=== PATIENT | male | born 1965 | race Caucasian/White ===

== ENCOUNTER 2021-09-26 20:23 | Emergency (ER) | payer BC ==
[2021-09-26 21:01] VITALS: TEMP 98.6
[2021-09-26] MEDS ORDERED: predniSONE 20 MG TAB PO STA (21:48)
[2021-09-26] MEDS ORDERED: valACYclovir 500 MG TAB PO ONE (22:00)
--- NOTE | 2021-09-26 22:02 | ED ---
Neuro HPI - General Chief Complaint: Neuro Symptoms/Deficit Stated Complaint: Droopy Eye Source: patient, RN notes reviewed, old records reviewed Mode of arrival: ambulatory Limitations: no limitations - History of Present Illness Is the patient presenting with stroke symptoms?: No -: hour(s) Initial Comments: This is a 56-year-old male DF for evaluation with no medical history patient presents with left-sided facial droop some drooling unable to close his left eye. Patient has no history of CVA. No history of high blood pressure high cholesterol diabetes or any other complaint. Patient has no recent travel history or sick contacts no trauma no fevers. Symptoms began when he awoke this morning he noticed when he was driving to work. Patient presents tonight is his is concerned of his symptoms Location: left face History of same: No Place: home Severity: mild Quality: numb, tingling Improves With: none Worsens With: none On Anticoagulants: No Context: sudden onset Associated Symptoms: denies other symptoms Treatments Prior to Arrival: none - Related Data Home Medications: Previous Rx's Medication Instructions Recorded Famotidine [Pepcid] 20 mg PO DAILY #5 tablet 06/20/14 diphenhydrAMINE [Benadryl] 50 mg PO HS PRN #5 capsule 06/20/14 predniSONE 50 mg PO DAILY #4 tab 06/20/14 Nystatin 100,000 Unit/gm Powd 1 applic TOPICAL BID #15 gram 09/26/21 [Mycostatin Powder] predniSONE [Deltasone] 20 mg PO DIRECTED #40 tab 09/26/21 valACYclovir HCL [Valtrex] 1,000 mg PO BID #14 tab 09/26/21 Allergies/Adverse Reactions: Allergies Allergy/AdvReac Type Severity Reaction Status Date / Time No Known Allergies Allergy Verified 09/26/21 20:56 Review of Systems ROS Statement: Those systems with pertinent positive or pertinent negative responses have been documented in the HPI. ROS Other: All systems not noted in ROS Statement are negative. General Exam - General Exam Comments Initial Comments: NIH of 1 GCS of 15 Neurological deficits are limited to facial nerve distribution, Limitations: no limitations General appearance: alert, in no apparent distress Head exam: Present: atraumatic, normocephalic, normal inspection Eye exam: Present: normal appearance, PERRL, EOMI. Absent: scleral icterus, conjunctival injection, periorbital swelling ENT exam: Present: normal exam, mucous membranes moist Neck exam: Present: normal inspection. Absent: tenderness, meningismus, lymphadenopathy Respiratory exam: Present: normal lung sounds bilaterally. Absent: respiratory distress, wheezes, rales, rhonchi, stridor Cardiovascular Exam: Present: regular rate, normal rhythm, normal heart sounds. Absent: systolic murmur, diastolic murmur, rubs, gallop, clicks GI/Abdominal exam: Present: soft, normal bowel sounds. Absent: distended, tenderness, guarding, rebound, rigid Extremities exam: Present: normal inspection, full ROM, normal capillary refill. Absent: tenderness, pedal edema, joint swelling, calf tenderness Back exam: Present: normal inspection Neurological exam: Present: alert, oriented X3, CN II-XII intact Psychiatric exam: Present: normal affect, normal mood Skin exam: Present: warm, dry, intact, normal color. Absent: rash Stroke MDM - NIH Stroke Scale 1a. Level of Consciousness: (0) alert 1b. LOC Questions: (0) answers correctly 1c. LOC Commands: (0) performs tasks correctly 2. Best Gaze: (0) normal 3. Visual: (0) no visual loss 4. Facial Palsy: (1) minor paralysis 5a. Motor Arm Left: (0) no drift 5b. Motor Arm Right: (0) no drift 6a. Motor Leg Left: (0) no drift 6b. Motor Leg Right: (0) no drift 7. Limb Ataxia: (0) absent 8. Sensory: (0) normal 9. Best Language: (0) no aphasia 10. Dysarthria: (0) normal 11. 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 Left-sided forehead paralysis. Left- sided facial droop. Patient will be placed on prednisone, Valtrex and discharged Past Medical History Past Medical History: No Reported History History of Any Multi-Drug Resistant Organisms: None Reported Past Surgical History: No Surgical Hx Reported Past Psychological History: No Psychological Hx Reported Smoking Status: Current every day smoker Past Alcohol Use History: Occasional Past Drug Use History: None Reported Course Vital Signs 09/26/21 20:57 Temperature 98.6 F Pulse Rate 96 Respiratory 20 Rate Blood Pressure 141/81 O2 Sat by Pulse 94 L Oximetry - Reevaluation(s) Reevaluation #1: 09/26/21 22:04 Records reviewed Reevaluation #2: 09/26/21 22:04 No change in symptoms here in the emergency department Reevaluation #3: 09/26/21 22:04 Patient informed results and questions have been answered Disposition Clinical Impression: Kelly's palsy Disposition: HOME SELF-CARE Condition: Good Instructions (If sedation given, give patient instructions): Kelly Palsy (ED) Prescriptions: predniSONE [Deltasone] 20 mg PO DIRECTED #40 tab Nystatin 100,000 Unit/gm Powd [Mycostatin Powder] 1 applic TOPICAL BID #15 gram valACYclovir HCL [Valtrex] 1,000 mg PO BID #14 tab Is patient prescribed a controlled substance at d/c from ED?: No Referrals: Kevin Weiner MD [Primary Care Provider] - 1-2 days
[2021-09-26 22:13] VITALS: BP 137/84; PULSE 90; RESP 18
== END 2021-09-26 22:55 | disposition home or self-care (01) ==
LOC: EC 20:23
DX: G51.0 Bell's palsy (principal); F17.200 Nicotine dependence, unspecified, uncomplicated
CPT/HCPCS: 99284; J7512